=== PATIENT | male | born 1940 | race Caucasian/White ===

== ENCOUNTER 2017-10-14 08:53 | Day surgery (SDC) | payer MEDICARE, MEDICAID ==
[~2017-10-14 08:53] MED LIST: Lactated Ringers 1,000 ML IV SCH; Sodium Chloride 0.9% 10 ML Syringe FLUSH PRN
[2017-10-14] MEDS ORDERED: Albuterol/Ipratropium 3.0-0.5 MG/3 ML Neb Soln NEB ONE (10:16)
[2017-10-14] MEDS ORDERED: Albuterol/Ipratropium 3.0-0.5 MG/3 ML Neb Soln ONE (10:18)
[2017-10-14] MEDS ORDERED: Propofol 200 MG/20 ML SDV ONE (10:21)
[2017-10-14] MEDS ORDERED: Midazolam 1 MG/ML 2 ML SDV ONE (10:21)
--- NOTE | 2017-10-14 10:30 | PCM.PN ---
- General Info Date of Service: 10/14/17 - Review of Systems Systems Review Comment:: 77-year-old male here for colonoscopy. He has a history of colon cancer for which she had a colon resection in the past. He is medically stable to proceed today. There is been no significant change in his health status in the recent past. In the more remote past he did have cardiac issue which is been stabilized at this point. He is medically stable to proceed with colonoscopy. I reviewed his recent history and physical and no significant changes to his current status are noted. I discussed the proposed colonoscopy with the patient. He agrees to proceed accepting risks. - Patient Data Vitals - Most Recent: Last Vital Signs Temp 97.9 F 10/14/17 09:13 Pulse 86 10/14/17 09:13 Resp 18 10/14/17 09:13 BP 148/94 H 10/14/17 09:13 Pulse Ox 98 10/14/17 09:13 Weight - Most Recent: 117.934 kg Lab Results Last 24 Hours: Laboratory Results - last 24 hr 10/14/17 Range/Units 09:33 POC Glucose 150 H (65-110) mg/dl Med Orders - Current: Current Medications Lactated Ringer's (Ringers, Lactated) 1,000 mls @ 125 mls/hr IV ASDIRECTED JAYJ AY Last Admin: 10/14/17 09:40 Dose: 125 mls/hr Sodium Chloride (Saline Flush) 10 ml FLUSH ASDIRECTED PRN PRN Reason: Keep Vein Open Discontinued Medications Albuterol/Ipratropium (Duoneb 3.0-0.5 Mg/3 Ml) 3 ml NEB ONETIME ONE Stop: 10/14/17 10:17 Last Admin: 10/14/17 10:20 Dose: 3 ml Albuterol/Ipratropium (Duoneb 3.0-0.5 Mg/3 Ml) Confirm Administered Dose 3 ml .ROUTE .STK-MED ONE Stop: 10/14/17 10:19 Last Admin: 10/14/17 10:22 Dose: Not Given Midazolam HCl (Versed 1 Mg/Ml) Confirm Administered Dose 2 mg .ROUTE .STK-MED ONE Stop: 10/14/17 10:22 Propofol (Diprivan 20 Ml) Confirm Administered Dose 400 mg .ROUTE .STK-MED ONE Stop: 10/14/17 10:22 - Problem List Review Problem List Initiated/Reviewed/Updated: Yes - Assessment Assessment:: History of colon cancer - Plan Plan:: Colonoscopy
--- NOTE | 2017-10-14 11:07 | PCM.OPNOTE ---
- General Post-Op/Procedure Note Date of Surgery/Procedure: 10/14/17 Operative Procedure(s): Colonoscopy with Polypectomy Findings: Sigmoid Colon Polyp Otherwise Normal Post Op Colon Pre Op Diagnosis: History of colon cancer Post-Op Diagnosis: Colon Polyp Anesthesia Technique: MAC Primary Surgeon: Víctor Kulkarni Pathology: Sigmoid Colon Polyp Output, Urine Amount: 0 EBL in mLs: 0 Complications: None Condition: Good Free Text/Narrative:: Intake & Output 10/13/17 10/14/17 10/14/17 22:59 06:59 14:59 Intake Total 1000 Balance 1000
[2017-10-14 13:01] VITALS: BP 124/85
--- NOTE | 2017-10-14 14:20 | OR ---
Date of Procedure: 10/14/2017 PREOPERATIVE DIAGNOSIS: History of colon cancer. POSTOPERATIVE DIAGNOSIS: Colon polyp. OPERATION PERFORMED: Colonoscopy with polypectomy. INDICATIONS FOR SURGERY: This 77-year-old male has had a previous colon resection for colon cancer. He comes for surveillance exam as his last colonoscopy was done three years ago. FINDINGS: No sign of cancer recurrence is noted. There is a single polyp, 7 mm in size and sessile in configuration, located in the sigmoid colon 25 cm from anal verge. The remainder of the colon appears normal. His anastomosis is widely patent. PROCEDURE IN DETAIL: The patient was taken to the operating room. He was given intravenous sedation, and with him in the left lateral decubitus position, a digital rectal exam was performed showing no rectal masses. The Olympus colonoscope was inserted into the rectum. A retroflexed examination of the rectal canal is performed. The scope was then advanced up to the sigmoid area where the above-described polyp was identified. It was removed with a cautery snare and retrieved into a polyp trap. The scope was then carefully advanced through the remainder of the colon until the cecum is reached. Cecal acquisition is confirmed by noting the light to transilluminate the abdominal wall, the right lower quadrant, and identifying the appendiceal orifice and the ileocecal valve. The scope was then slowly withdrawn, sequentially re-examining the colonic segments until the entire colon and rectum have been fully examined. Once the exam was completed and with no sign of any bleeding or other complication, the scope was removed, and the patient was taken from the operating room in satisfactory condition. ESTIMATED BLOOD LOSS: Zero. COMPLICATIONS: None. PROGNOSIS: Good. ARMANDO Kulkarni MD /[id number]
== END 2017-10-14 12:20 | disposition home or self-care (01) ==
LOC: LL.SDS 08:53
PROVIDERS: ATTEND Surgery
DX: Z12.11 Encounter for screening for malignant neoplasm of colon (principal); D12.5 Benign neoplasm of sigmoid colon; I10 Essential (primary) hypertension; J44.9 Chronic obstructive pulmonary disease, unspecified; G89.29 Other chronic pain; M54.5 Low back pain; E78.5 Hyperlipidemia, unspecified; E11.9 Type 2 diabetes mellitus without complications; Z85.038 Personal history of other malignant neoplasm of large intestine; Z79.84 Long term (current) use of oral hypoglycemic drugs; Z79.899 Other long term (current) drug therapy
CPT/HCPCS: 45385; 82962; 94640; J2250; J2704; J7120; 00810-QZ; 88305